=== PATIENT | male | born 1975 | race African-American/Black ===

== ENCOUNTER → 2020-02-24 | Outpatient (CLI) | payer BC ==
--- NOTE | 2020-02-24 16:16 | KCIC ---
Two-view lumbar spine dated 02/24/2020. No comparison available. CLINICAL INDICATION: Acute bilateral low back pain with left-sided sciatica. FINDINGS: 2 views lumbar spine show normal sagittal alignment. Vertebral body heights are maintained. No significant endplate hypertrophic changes. There is mild disc space narrowing at L5-S1. Minimal hypertrophic change of the lower lumbar apophyseal joints. IMPRESSION: No acute radiographic abnormality. Electronically signed by: Chilango Ragland MD (02/24/2020 4:13 PM) MAN
== END | disposition home or self-care (01) ==
LOC: KCIC 12:56
PROVIDERS: ATTEND Nurse Practitioner Gerontology
DX: M48.07 Spinal stenosis, lumbosacral region (principal); M89.48 Other hypertrophic osteoarthropathy, other site; M54.42 Lumbago with sciatica, left side
CPT/HCPCS: 72100

== ENCOUNTER 2021-07-20 15:33 | Emergency (ER) | payer SELFPAY ==
[~2021-07-20] VITALS: Ht 182.9 cm; Wt 70.9 kg
--- NOTE | 2021-07-20 18:16 | PHYS DOC ---
General Adult EDM: Chief Complaint: FLU SYMPTOM HPI: HPI: Patient is a 45 year old male who states he is fully vaccinated presents with a 9-day history of headache fatigue body ache decreased appetite. Patient states 3 days ago he started to have fever. Patient states he sleeps all day denies any associated nausea vomiting or diarrhea. On exam patient appears in no acute distress oxygen saturation 94% on room air. Review of Systems: Review of Systems: Review of systems: Constitutional symptoms- Positive fever, Positive chills. Eyes- No Discharge, No Visual Loss Respiratory symptoms- No shortness of breath, No wheezing, No Dyspnea on Exertion Cardiovascular Systems; No chest pain, No Palpitations, No syncope Gastrointestinal symptoms: NO abdominal pain, no nausea, no vomiting or diarrhea. Genitourinary symptoms: No dysuria. Musculoskeletal symptoms: No back pain No extremity pain. NEUROLOGICAL Symptoms: No headache, Positive generalized weakness; No focal WeaknessPositive fatigue Skin: No rash. Heart Score: C/O Chest Pain: N/A Risk Factors: Risk Factors: DM, Current or recent (<one month) smoker, HTN, HLP, family history of CAD, obesity. Risk Scores: Score 0 - 3: 2.5% MACE over next 6 weeks - Discharge Home Score 4 - 6: 20.3% MACE over next 6 weeks - Admit for Clinical Observation Score 7 - 10: 72.7% MACE over next 6 weeks - Early Invasive Strategies Physical Exam: PE: Constitutional: Well developed, well nourished, no acute distress, non-toxic appearance. [] HENT: Normocephalic, atraumatic, bilateral external ears normal, oropharynx moist, no oral exudates, nose normal. [] Eyes: PERRLA, EOMI, conjunctiva normal, no discharge. [] Neck: Normal range of motion, no tenderness, supple, no stridor. [] Cardiovascular:Heart rate regular rhythm, no murmur [] Lungs & Thorax: Bilateral breath sounds clear to auscultation [] Abdomen: Bowel sounds normal, soft, no tenderness, no masses, no pulsatile masses. [] Skin: Warm, dry, no erythema, no rash. [] Back: No tenderness, no CVA tenderness. [] Extremities: No tenderness, no cyanosis, no clubbing, ROM intact, no edema. [] Neurologic: Alert and oriented X 3, normal motor function, normal sensory function, no focal deficits noted. [] Psychologic: Affect normal, judgement normal, mood normal. [] EKG: EKG: [] Radiology/Procedures: Radiology/Procedures: [] Course & Med Decision Making: Course & Med Decision Making Pertinent Labs and Imaging studies reviewed. (See chart for details) [] Dragon Disclaimer: Dragon Disclaimer: This electronic medical record was generated, in whole or in part, using a voice recognition dictation system. Departure Departure Impression: Primary Impression: Viral illness Disposition: HOME / SELF CARE / HOMELESS Condition: STABLE Referrals: RUBY MARTINEZ APRN (PCP) Patient Instructions: Viral Syndrome Scripts Azithromycin (ZITHROMAX) 250 Mg Tablet 1 PKG PO UD, #6 TAB Prov: JOVANA CURRY DO 07/20/21 JOVANA CURRY DO Jul 20, 2021 18:16
[2021-07-20 18:20] VITALS: BP 133/61
[2021-07-20] MEDS ORDERED: AZIT250T PO (19:32)
[2021-07-20 19:34] LABS: INFLUENZA A PATIENT NEGATIVE (NEGATIVE); INFLUENZA B PATIENT NEGATIVE (NEGATIVE)
--- NOTE | 2021-07-20 19:34 | RAD ---
XR CHEST 1V History: Cough. Comparison: None. Technique: Portable AP radiograph of the chest. Findings: The lungs are adequately inflated. No focal airspace consolidation, pleural effusion or pneumothorax. Cardiomediastinal silhouette and pulmonary vasculature are within normal limits. There is air or oth er external artifact projecting over the left lung apex and scapula. Osseous structures and soft tiss ues are unremarkable. Impression: 1. No acute cardiopulmonary process. Electronically signed by: Robert Nova MD (07/20/2021 7:31 PM) [facility]
--- NOTE | 2021-07-21 16:53 | NUR ---
IP: Attempted to contact pt concerning covid results. No answer, left a voicemail to return the call.
--- NOTE | 2021-07-22 14:56 | NUR ---
IP: Attempted to contact pt concerning covid results. Phone number provided is now not in service.
== END 2021-07-20 20:05 | disposition home or self-care (01) ==
LOC: ER 15:33
DX: B34.9 Viral infection, unspecified (principal); Z20.822 Contact with and (suspected) exposure to COVID-19
CPT/HCPCS: 71045; 87426; 87804; 99284; U0003; U0005